=== PATIENT | male | born 1980 | race Two or more races ===

== ENCOUNTER → 2020-08-17 | Emergency (ER) | payer OTHER ==
[~2020-08-17] VITALS: Ht 180.3 cm; Wt 104.3 kg
[~2020-08-17] MED LIST: DICLOFENAC SODI75 MG PO; NORFLEX100MG PO
== END | disposition home or self-care (01) ==
LOC: ER 13:58
DX: M54.6 Pain in thoracic spine (principal)

== ENCOUNTER 2020-10-14 23:47 | Emergency (ER) | payer OTHER ==
[~2020-10-14] VITALS: Ht 177.8 cm; Wt 100.2 kg
== END 2020-10-15 14:54 | disposition home or self-care (01) ==
LOC: ER 23:47
DX: M54.32 Sciatica, left side (principal); M54.10 Radiculopathy, site unspecified; M79.605 Pain in left leg; M25.562 Pain in left knee; M25.572 Pain in left ankle and joints of left foot